=== PATIENT | male | born 1965 | race Caucasian/White ===

== ENCOUNTER 2020-10-11 05:49 | Emergency (ER) | payer OTHER ==
[~2020-10-11] VITALS: Ht 172.7 cm; Wt 84.4 kg
[~2020-10-11 05:49] MED LIST: ALLO100T; INSU100V11
--- NOTE | 2020-10-11 06:09 | NUR ---
PATIENT BIBSELF C/O NAUSEA -VOMITING S/P DRINKING WATER THAT WAS IN HIS CAR. PATIENT IS A/O X 4, RR EVEN AND UNLABORED, NO SIGNS OF SOB NOTED, PATIENT CONNECTED TO SINGEING TORCH OPERATOR AND POX. WILL CONTINUE TO MONITOR.
[2020-10-11] MEDS ORDERED: ONDANSETRON HCL/PF 4 MG/2 ML VIAL ONE (06:38)
[2020-10-11] MEDS ORDERED: MAG HYDROX/AL HYDROX/SIMETH 30 ML UDC ONE (06:38)
[2020-10-11] MEDS ORDERED: LIDOCAINE VISCOUS 2% UD 15 ML UDC ONE (06:38)
[2020-10-11] MEDS ORDERED: FAMOTIDINE/PF INJ 20 MG/2 ML VIAL IV ONE (06:39)
[2020-10-11] MEDS: IV NS 0.9% 1,000 ML BAG IV ONE (06:46)
[2020-10-11] MEDS: LIDOCAINE VISCOUS 2% UD 15 ML UDC MM ONE (06:46)
[2020-10-11] MEDS: MAG HYDROX/AL HYDROX/SIMETH 30 ML UDC PO ONE (06:46)
[2020-10-11] MEDS: ONDANSETRON HCL/PF 4 MG/2 ML VIAL IVP ONE (06:46)
[2020-10-11] MEDS: FAMOTIDINE/PF INJ 20 MG/2 ML VIAL IV ONE (06:46)
--- NOTE | 2020-10-11 06:51 | NUR ---
URINE COLLECETED AND SENT TO LAB
[2020-10-11] MEDS ORDERED: FAMO-131 PO (06:52)
[2020-10-11] MEDS ORDERED: ONDA4TAB5 PO (06:52)
[2020-10-11 06:55] LABS: BASOPHILS # (AUTO) 0.1 K/uL (0.0-0.2); BASOPHILS % (AUTO) 0.8 % (0.0-2.0); EOSINOPHILS % (AUTO) 0.6 % (0.0-6.0); HEMATOCRIT 46 % (39-51); HEMOGLOBIN 16.4 g/dL (13.5-17.5); LYMPHOCYTES # (AUTO) 1.8 K/uL (0.8-4.8); LYMPHOCYTES % (AUTO) 21.9 % (20.0-44.0); MEAN CORPUSCULAR HGB CONC 36 g/dl (31.0-36.0); MEAN CORPUSCULAR VOLUME 90 fL (80-96); MONOCYTES # (AUTO) 0.7 K/uL (0.1-1.30); MONOCYTES % (AUTO) 8.1 % (2.0-12.0); NEUTROPHILS # (AUTO) 5.7 K/uL (1.8-8.9); NEUTROPHILS % (AUTO) 68.6 % (43.0-81.0); PLATELET COUNT (AUTO) 167 K/uL (150-450); RED BLOOD CELL COUNT(AUTO) 5.08 MIL/uL (4.5-6.0); WHITE BLOOD COUNT (AUTO) 8.3 K/uL (4.3-11.0)
--- NOTE | 2020-10-11 06:55 | NUR ---
RAD AT BEDSIDE
[2020-10-11 07:20] LABS: CARBON DIOXIDE 29 mmol/L (21-32); CHLORIDE 97 mmol/L (98-107); CREATININE 0.9 mg/dL (0.6-1.3); POTASSIUM 3.6 mmol/L (3.5-5.1); SODIUM SERUM 135 mmol/L (136-145); UREA NITROGEN, BLOOD 12 mg/dL (7-18)
[2020-10-11 07:23] LABS: GLUCOSE 354 mg/dL (74-106)
[2020-10-11 07:26] LABS: ALANINE AMINOTRANSFERASE 30 U/L (12-78); ALBUMIN 3.7 g/dL (3.4-5.0); ALKALINE PHOSPHATASE 136 U/L (46-116); ASPARTATE AMINOTRANSFERASE 12 U/L (15-37); BILIRUBIN,DIRECT 0.2 mg/dL (0.0-0.2); BILIRUBIN,TOTAL 0.9 mg/dL (0.2-1.0); LIPASE 74 U/L (73-393); TOTAL PROTEIN, SERUM 7.4 g/dL (6.4-8.2)
[2020-10-11 07:59] LABS: BILIRUBIN,URINE Negative (NEGATIVE); COLOR,URINE YELLOW (YELLOW); LEUKOCYTE ESTERASE ,URINE Negative (NEGATIVE); NITRITE, URINE Negative (NEGATIVE); PROTEIN,URINE Negative (NEGATIVE); UGLUCOSE 500 MG/DL mg/dL (NEGATIVE); UROBILINOGEN,URINE 0.2 EU/dL (0.2)
[2020-10-11] MEDS ORDERED: BENZOIN COMPOUND TINCT 60 ML BOTTLE ONE (08:01)
--- NOTE | 2020-10-11 08:02 | NUR ---
F/U URINE AND DRUG TEST, SPOKE WITH FABBY
[2020-10-11 08:12] LABS: BACTERIA,URINE Rare /HPF (None Seen); RBC,URINE NONE SEEN /HPF (0-2); SQUAMOUS EPITHELIAL CELL,UR Few /HPF (None Seen); WBC,URINE 0-2 /HPF (0-3)
--- NOTE | 2020-10-11 08:37 | NUR ---
LAB RESULTS ARE BACK AND SHOWS POSITIVE OF AMPETHAMINE AND MD KAYLEE NOTIFIED.
--- NOTE | 2020-10-11 08:38 | NUR ---
DR MAYER AT BEDSIDE
--- NOTE | 2020-10-11 08:40 | NUR ---
PT CALLED SISTER TO PICK HIM UP AND DR MAYER AGREED TO MEDICATE HIM
[2020-10-11] MEDS ORDERED: LORAZEPAM 1 MG TABLET ONE (09:04)
[2020-10-11] MEDS: LORAZEPAM 1 MG TABLET PO ONE (09:07)
--- NOTE | 2020-10-11 09:08 | NUR ---
BP AND HEART RATE ELEVATED, DR MAYER MADE AWARE, WITH NEW ORDERS.
[2020-10-11 09:25] VITALS: BP 170/100
--- NOTE | 2020-10-11 09:38 | NUR ---
IV removed. Catheter intact and site benign. Pressure and 4x4 applied to site. No bleeding noted.Patient discharged to waiting room to wait for sister to drive him home. Written and verbal after care instructions given. Patient verbalizes understanding of instruction.
== END 2020-10-11 09:39 | disposition home or self-care (01) ==
LOC: ER 05:49
DX: R10.13 Epigastric pain (principal); R11.0 Nausea; R53.81 Other malaise; F15.129 Other stimulant abuse with intoxication, unspecified; F14.129 Cocaine abuse with intoxication, unspecified; R07.89 Other chest pain; E11.65 Type 2 diabetes mellitus with hyperglycemia; I10 Essential (primary) hypertension; M10.9 Gout, unspecified; Z79.899 Other long term (current) drug therapy; Z79.4 Long term (current) use of insulin
CPT/HCPCS: 36415; 71045; 80048; 80076; 80307; 80320; 81001; 82962; 83690; 84484; 85025; 93005; 96361; 96374; 96375; 99285; J2405; J3490; G0480

== ENCOUNTER 2022-03-30 06:14 | Inpatient (IN) | payer OTHER ==
[~2022-03-30] VITALS: Ht 182.9 cm; Wt 97.5 kg
[2022-03-30] VITALS (10 sets, daily range): BP systolic 94–114; BP diastolic 63–74
[~2022-03-30 06:14] MED LIST changes: +FAMO-131 PO; +ONDA4TAB5 PO
[2022-03-30] MEDS ORDERED: IV NS 0.9% 1,000 ML BAG IV ONE (06:30)
--- NOTE | 2022-03-30 06:37 | NUR ---
PATIENT TO CT
--- NOTE | 2022-03-30 07:01 | NUR ---
IV LINE ESTABLISHED, LAC18G
[2022-03-30 07:13] LABS: BASOPHILS % (AUTO) 0.6 % (0.0-2.0); HEMATOCRIT 47 % (39-51); LYMPHOCYTES # (AUTO) 0.4 K/uL (0.8-4.8); LYMPHOCYTES % (AUTO) 5.9 % (20.0-44.0); MEAN CORPUSCULAR HGB CONC 32 g/dl (31.0-36.0); MEAN CORPUSCULAR VOLUME 94 fL (80-96); MONOCYTES # (AUTO) 0.3 K/uL (0.1-1.30); MONOCYTES % (AUTO) 4.4 % (2.0-12.0); NEUTROPHILS # (AUTO) 6.3 K/uL (1.8-8.9); NEUTROPHILS % (AUTO) 89.1 % (43.0-81.0); PLATELET COUNT (AUTO) 167 K/uL (150-450); RED BLOOD CELL COUNT(AUTO) 4.97 MIL/uL (4.5-6.0)
[2022-03-30 07:26] LABS: ALANINE AMINOTRANSFERASE 33 U/L (12-78); ALBUMIN 3.5 g/dL (3.4-5.0); ALCOHOL, BLOOD < 3 mg/dL (0-0); ALKALINE PHOSPHATASE 205 U/L (46-116); ASPARTATE AMINOTRANSFERASE 34 U/L (15-37); BILIRUBIN,DIRECT 0.1 mg/dL (0.0-0.2); BILIRUBIN,TOTAL 0.3 mg/dL (0.2-1.0); CALCIUM, SERUM 8.8 mg/dL (8.5-10.1); CARBON DIOXIDE 24 mmol/L (21-32); CHLORIDE 88 mmol/L (98-107); CREATININE 1.9 mg/dL (0.6-1.3); POTASSIUM 5.1 mmol/L (3.5-5.1); SODIUM SERUM 129 mmol/L (136-145); TOTAL PROTEIN, SERUM 7.2 g/dL (6.4-8.2); UREA NITROGEN, BLOOD 27 mg/dL (7-18)
[2022-03-30 07:29] LABS: ACETAMINOPHEN 0 ug/ml (10-30); GLUCOSE 1109 mg/dL (74-106)
--- NOTE | 2022-03-30 07:38 | NUR ---
[employer] bond underwriter paged - via exchange
[2022-03-30] MEDS ORDERED: INSULIN REGULAR, HUMAN 100 UNITS in IV NS 0.9% 100 ML IV PRN ×2 (08:00)
[2022-03-30] MEDS ORDERED: IV NS 0.9% 1,000 ML IV PRN (08:00)
--- NOTE | 2022-03-30 08:27 | NUR ---
COVID SWAB COLLECTED AND SENT TO LAB
--- NOTE | 2022-03-30 08:28 | NUR ---
URINE COLLECTED AND SENT TO LAB.
--- NOTE | 2022-03-30 08:31 | NUR ---
started insulin drip 6.06ml/hr at left ac as ordered
--- NOTE | 2022-03-30 08:51 | NUR ---
MRSA SWAB DONE
[2022-03-30 09:23] LABS: CREATININE 1.9 mg/dL (0.6-1.3); PHOSPHORUS 7.4 mg/dL (2.5-4.9); POTASSIUM 4.6 mmol/L (3.5-5.1)
[2022-03-30 09:38] LABS: BILIRUBIN,URINE NEGATIVE (NEGATIVE); COLOR,URINE YELLOW (YELLOW); LEUKOCYTE ESTERASE ,URINE NEGATIVE (NEGATIVE); NITRITE, URINE NEGATIVE (NEGATIVE); PH,URINE 5.5 (5.0-8.0); PROTEIN,URINE NEGATIVE (NEGATIVE); UGLUCOSE 3+ mg/dL (NEGATIVE); UROBILINOGEN,URINE 0.2 EU/dL (0.2)
[2022-03-30] MEDS ORDERED: INSU100I14 SQ (09:38)
[2022-03-30] MEDS ORDERED: ASPI-1169 PO (09:38)
[2022-03-30] MEDS ORDERED: HALO10TA13 PO (09:38)
[2022-03-30] MEDS ORDERED: METO25TA20 PO (09:38)
[2022-03-30] MEDS ORDERED: INSU100I26 SQ (09:38)
[2022-03-30] MEDS ORDERED: SERT100T12 PO (09:38)
[2022-03-30] MEDS ORDERED: DIPH-1062 PO (09:38)
[2022-03-30 09:42] LABS: CALCIUM, SERUM 8.9 mg/dL (8.5-10.1); CREATININE 1.8 mg/dL (0.6-1.3); MAGNESIUM 2.9 mg/dL (1.8-2.4); PHOSPHORUS 6.9 mg/dL (2.5-4.9); POTASSIUM 4.7 mmol/L (3.5-5.1)
[2022-03-30 09:42] LABS: BACTERIA,URINE None seen /HPF (None Seen); SQUAMOUS EPITHELIAL CELL,UR Few /HPF (None Seen); WBC,URINE 0-2 /HPF (0-3)
[2022-03-30] MEDS ORDERED: POTASSIUM CL. PREMIX PERIPHER. 50 ML ONE (09:58)
[2022-03-30] MEDS: POTASSIUM CL. PREMIX PERIPHER. 50 ML IV SCH ×4 (10:10→13:05)
[2022-03-30] MEDS ORDERED: POTASSIUM CL. PREMIX PERIPHER. 150 ML ONE (11:09)
--- NOTE | 2022-03-30 11:20 | NUR ---
PATIENT CLEANED, CHANGED LINEN AND PULL UP.
[2022-03-30 11:40] LABS: CALCIUM, SERUM 9.1 mg/dL (8.5-10.1); CREATININE 1.9 mg/dL (0.6-1.3); MAGNESIUM 2.9 mg/dL (1.8-2.4); PHOSPHORUS 4.1 mg/dL (2.5-4.9); POTASSIUM 4.4 mmol/L (3.5-5.1)
[2022-03-30] MEDS ORDERED: ONDANSETRON HCL/PF 4 MG/2 ML VIAL IVP PRN (12:00)
[2022-03-30] MEDS ORDERED: INSULIN REGULAR, HUMAN 100 UNIT in IV NS 0.9% 99 ML IV PRN ×2 (12:00)
--- NOTE | 2022-03-30 13:22 | NUR ---
report given to Lindy CARRASQUILLO for NORBERT
[2022-03-30] MEDS: IV NS 0.9% 1,000 ML IV PRN ×4 (13:25→22:52)
--- NOTE | 2022-03-30 14:00 | NUR ---
ICU/RN PT RECEIVED IN ROOM 255, PLACED ON BED. PT ON 2L O2 NC SAT 96%, VITAL SIGNS STABLE. PT AWAKE AND ALERT, COOPERATIVE WITH POC.
[2022-03-30] MEDS: ENOXAPARIN SODIUM 40 MG/0.4 ML DISP.SYRIN SQ SCH (14:21)
[2022-03-30] MEDS: BLOOD SUGAR DIAGNOSTIC 1 EACH STRIP IN SCH ×10 (14:26→22:53)
[2022-03-30 16:22] LABS: CALCIUM, SERUM 8.6 mg/dL (8.5-10.1); CREATININE 1.6 mg/dL (0.6-1.3); POTASSIUM 4.1 mmol/L (3.5-5.1)
--- NOTE | 2022-03-30 19:40 | NUR ---
RN OPENING NOTES RECEIVED PT AWAKE ON BED, A/O X3 ABLE TO MAKE NEEDS KNOWN, ON NC AT 2LPM, TOLERATING WELL SATING >95%, IV ACCESS ON LAC #18G WITH INSILIN DRIP AT 5.0 UNITS/HR AND R WRIST #20G RUNNING NS @ 200 ML/HR, AFEBRILE. NO PAIN REPORTED AT THIS TIME. F/C IN PLACE DRAINING YELLOW URINE. REPOSITION FOR COMFORT. SAFETY MEASURES IN PLACED; CALL LIGHT WITHIN REACH, WILL CONTINUE TO MONITOR PT THROUGHOUT THE SHIFT.
[2022-03-30 21:55] LABS: CALCIUM, SERUM 8.5 mg/dL (8.5-10.1); CREATININE 1.1 mg/dL (0.6-1.3); POTASSIUM 4.1 mmol/L (3.5-5.1)
--- NOTE | 2022-03-30 23:00 | NUR ---
RN NOTE COVID TEST DONE, SAMPLE SENT TO LABORATORY.
[2022-03-31] VITALS (14 sets, daily range): BP systolic 98–141; BP diastolic 40–83
--- NOTE | 2022-03-31 00:45 | NUR ---
RN NOTE LAB CAME TO DRAW BLOOD FOR SCHEDULED BMP. UNABLE TO GET BLOOD, PT IS HARDSTICK PER LAB WILL SEND ANOTHER OBSTETRICIAN AND GYNAECOLOGIST TO TAKE IT.
[2022-03-31] MEDS: BLOOD SUGAR DIAGNOSTIC 1 EACH STRIP IN SCH ×8 (00:47→21:31)
[2022-03-31 02:07] LABS: CALCIUM, SERUM 8.8 mg/dL (8.5-10.1); CREATININE 1.1 mg/dL (0.6-1.3); POTASSIUM 4.1 mmol/L (3.5-5.1)
[2022-03-31] MEDS ORDERED: DEXTROSE 50%-WATER 50 ML DISP.SYRIN IV PRN (03:30)
[2022-03-31] MEDS ORDERED: INSULIN GLARGINE, 100 UNIT/ML CARTRIDGE SQ ONE (03:46)
[2022-03-31] MEDS: INSULIN GLARGINE, 100 UNIT/ML CARTRIDGE SQ SCH ×2 (03:53→21:36)
[2022-03-31 05:13] LABS: BASOPHILS % (AUTO) 0.1 % (0.0-2.0); MEAN CORPUSCULAR VOLUME 90 fL (80-96); MONOCYTES # (AUTO) 0.8 K/uL (0.1-1.30); NEUTROPHILS # (AUTO) 10.9 K/uL (1.8-8.9)
[2022-03-31 05:17] LABS: MAGNESIUM 2.8 mg/dL (1.8-2.4); PHOSPHORUS 3.6 mg/dL (2.5-4.9); POTASSIUM 4.8 mmol/L (3.5-5.1)
[2022-03-31] MEDS: IV NS 0.9% 1,000 ML IV PRN ×3 (05:17→19:35)
[2022-03-31 05:20] LABS: HEMATOCRIT 42 % (39-51); HEMOGLOBIN 14.2 g/dL (13.5-17.5); LYMPHOCYTES # (AUTO) 1.2 K/uL (0.8-4.8); LYMPHOCYTES % (AUTO) 9.3 % (20.0-44.0); MEAN CORPUSCULAR HGB CONC 34 g/dl (31.0-36.0); MONOCYTES % (AUTO) 5.9 % (2.0-12.0); NEUTROPHILS % (AUTO) 84.7 % (43.0-81.0); PLATELET COUNT (AUTO) 147 K/uL (150-450); RED BLOOD CELL COUNT(AUTO) 4.65 MIL/uL (4.5-6.0); WHITE BLOOD COUNT (AUTO) 12.9 K/uL (4.3-11.0)
--- NOTE | 2022-03-31 07:12 | NUR ---
RN OPENING NOTES PT SLEEPING ON BED BUT EASILY AROUSABLE TO TOUCH AND VOICE, A/O X3 ABLE TO MAKE NEEDS KNOWN, ON NC AT 2LPM, TOLERATING WELL SATING >95%, IV ACCESS ON LAC #18G RUNNING NS AT 125 ML/HR, AND R WRIST #20G SL, AFEBRILE. NO PAIN REPORTED AT THIS TIME. ON CONSISTENT CARB DIET, F/C IN PLACE DRAINING YELLOW URINE. REPOSITION FOR COMFORT. SAFETY MEASURES IN PLACED; CALL LIGHT WITHIN REACH, WILL ENDORSE TO AM SHIFT NURSE FOR CONTINUITY OF CARE. Addendum: 03/31/22 at 0714 by JOSEE KOCH RN ICU/RN CLOSING NOTES PT SLEEPING ON BED BUT EASILY AROUSABLE TO TOUCH AND VOICE, A/O X3 ABLE TO MAKE NEEDS KNOWN, ON NC AT 2LPM, TOLERATING WELL SATING >95%, IV ACCESS ON LAC #18G RUNNING NS AT 125 ML/HR, AND R WRIST #20G SL, AFEBRILE. NO PAIN REPORTED AT THIS TIME. ON CONSISTENT CARB DIET, F/C IN PLACE DRAINING YELLOW URINE. REPOSITION FOR COMFORT. SAFETY MEASURES IN PLACED; CALL LIGHT WITHIN REACH, WILL ENDORSE TO AM SHIFT NURSE FOR CONTINUITY OF CARE.
--- NOTE | 2022-03-31 07:35 | NUR ---
RN OPENING NOTES RECEIVED PATIENT REPORT FROM [facility] NEIDA ZAPATA. PATIENT REMAINS IN ROOM BREATHING EVELY AND UNLABORED ON 2 LITERS NASAL CANULA, OXYGEN SATURATIOMN Addendum: 03/31/22 at 0745 by AURELIANO JACKSON RN NOTE SAVED PREMATURELY. THE REST OF THR OPENING NOTE IS FOLLOWS: OXYGEN SATURATION AT 99 PERCENT ON 2 LITERS NASAL CANULA. PATIENT ALERT TIMES 3, SLURRING WORDS BUT ABLE TO MAKE NEEDS KNOWN. WOUND CARE NURSE RANDELL AT BEDSIDE. MULTIPLE WOUNDS NOTED, REDNESS, OLD SCARS BUT NOTHING OPEN. READING NSR ON THE MONITOR. IV ACCESS ON LEFT AC 18 GAUGE AND RIGHT WRIST 20 GAUGE, RUNNING FLUIDS ORDERED. SAFETY MEASURES IMPLEMENTED, WILL CONTINUE PLAN OF CARE AND ANTICIPATE NEEDS.
--- NOTE | 2022-03-31 07:42 | NUR ---
WOUND CARE CONSULT: PT PRESENTS WITH LEFT HAND/WRIST REDNESS WITH SOME EXCORIATION TO LEFT HAND, ABRASIONS TO NOSE AND SOME DISCOLORATION TO LOWER LEGS, ALL PRESENT ON ADMISSION. RECOMMENDATIONS MADE FOR SKIN PROTECTION AND WOUND CARE FOR NOSE ABRASIONS. DISCUSSED WITH NURSING STAFF. LEFT ARM ELEVATED ON PILLOW. MD IN AGREEMENT WITH PLAN OF CARE.
[2022-03-31] MEDS ORDERED: Z GUARD REMEDY 4 OZ OINT TP PRN (08:00)
[2022-03-31] MEDS: PANTOPRAZOLE 40 MG VIAL IV SCH (08:01)
[2022-03-31] MEDS: INSULIN REGULAR, HUMAN 100 UNIT/ML 3 ML VIAL SQ PRN ×4 (08:03→21:38)
[2022-03-31] MEDS: NEOMY SULF/BACITRAC ZN/POLY 15 GM TUBE TP SCH (08:58)
[2022-03-31 09:24] LABS: BAND % (MANUAL) 23 % (0.0-5.0); LYMPHOCYTES % (MANUAL) 30 % (16-48); MONOCYTES % (MANUAL) 8 % (0-11.0); NEUTROPHILS % (MANUAL) 39 (42-76)
[2022-03-31] MEDS ORDERED: CEFEPIME 1 GM in IV D5W 50 ML IV SCH (10:30)
--- NOTE | 2022-03-31 10:37 | NUR ---
HAND OFF REPORT GIVEN TO GUILLERMO CARRASQUILLO IN [place]. PATIENT WILL BE TRANSFERRED TO ROOM 115-1 FOR CONTINUATION OF CARE.
[2022-03-31] MEDS ORDERED: CEFEPIME 2 GM in IV D5W 100 ML IV SCH (10:50)
--- NOTE | 2022-03-31 11:25 | NUR ---
MOBILE WEB APPLICATION DEVELOPER NOTES RECIEVED PT FROM ICU. ALERAT AND ORIENTED X4. NO COMPLAINTS OF PAIN OR DISCOMFORT AT THIS TIME. RESPIRATIONS ARE EQUAL AND UNLABORED WITH NO SOB. PT IS ON NC 2L AND TOLERATING IT WELL WITH 02 SATURATION AT 99%. IV ACCESS ON LAC AND RIGHT ARM 20G PATENT AND INTACT. PT IS PO AND RECEIVES MEDS ORALLY. HOB ELEVATED TO PTS COMFORT. SIDERAILS UP AT ALL TIMES. CALL LIGHT WITHIN REACH,. WILL CONTINUE CURRENT PLAN OF CARE.
[2022-03-31] MEDS: ENOXAPARIN SODIUM 40 MG/0.4 ML DISP.SYRIN SQ SCH (11:53)
[2022-03-31] MEDS: CEFEPIME 2 GM in IV D5W 100 ML IV SCH ×2 (11:55→20:00)
--- NOTE | 2022-03-31 12:30 | NUR ---
ms rn note blood [id number] dr peace,notified, no new order given at this time ,will f\u
--- NOTE | 2022-03-31 14:45 | NUR ---
MS RN NOTE ROUNDS MADE,ALL NEEDS ATTENDED ,NOT IN DISTRESS
--- NOTE | 2022-03-31 18:32 | NUR ---
HEAD OF VISUAL MERCHANDISING CLOSING NOTES PT IS ASLEEP IN BED. NO COMPLAINTS OF PAIN OR DISCOMFORT AT THIS TIME. PT IS ON NC 2L WITH 0W SATURATION AT 98%. IV ACCESS ON LAC PATENT AND INTACT. ALL DUE MEDS AND TC GIVEN ORDERED. PT TOLERATED EVERYTHING WELL. HOB ELEVATED TO PTS COMFORT. SIDERAILS UP AT ALL TIMES. CALL LIGHT WITHIN REACH. ALL NEEDS ANTICIPATED. WILL ENDORSE TO ONCOMING NURSE.
[2022-04-01] MEDS: IV NS 0.9% 1,000 ML IV PRN (03:23)
[2022-04-01] MEDS: CEFEPIME 2 GM in IV D5W 100 ML IV SCH ×3 (03:49→20:25)
--- NOTE | 2022-04-01 04:42 | NUR ---
closing notes: alert and orientated X3 assisted OOB to sit on the bedside commode minimal assist needed excessive water drinker petit in place and draiange clear yellow HC blood sugar 269 coverage ordered
[2022-04-01 05:00] VITALS: BP 131/71
[2022-04-01 05:53] LABS: BASOPHILS % (AUTO) 0.2 % (0.0-2.0); EOSINOPHILS % (AUTO) 0.1 % (0.0-6.0); HEMATOCRIT 37 % (39-51); HEMOGLOBIN 12.3 g/dL (13.5-17.5); LYMPHOCYTES # (AUTO) 1.6 K/uL (0.8-4.8); LYMPHOCYTES % (AUTO) 10.1 % (20.0-44.0); MEAN CORPUSCULAR HGB CONC 34 g/dl (31.0-36.0); MEAN CORPUSCULAR VOLUME 89 fL (80-96); MONOCYTES # (AUTO) 0.6 K/uL (0.1-1.30); NEUTROPHILS # (AUTO) 13.3 K/uL (1.8-8.9); NEUTROPHILS % (AUTO) 85.6 % (43.0-81.0); PLATELET COUNT (AUTO) 134 K/uL (150-450); RED BLOOD CELL COUNT(AUTO) 4.14 MIL/uL (4.5-6.0); WHITE BLOOD COUNT (AUTO) 15.5 K/uL (4.3-11.0)
[2022-04-01 06:10] LABS: CALCIUM, SERUM 8.5 mg/dL (8.5-10.1); CREATININE 0.8 mg/dL (0.6-1.3); POTASSIUM 3.8 mmol/L (3.5-5.1)
--- NOTE | 2022-04-01 07:30 | NUR ---
RN Receiving Report. Patient AOx4 able to express his concerns. Patient asking for a juice. Patient able to move arms on his own, helped reposition. Patient with no signs of distress or discomfort, no sign of respiratory distress, no sign of IV infiltration. All safety precautions taken, call light and table within reach, bed at lowest position. Will continue to monitor throughout shift.
[2022-04-01] MEDS: BLOOD SUGAR DIAGNOSTIC 1 EACH STRIP IN SCH ×4 (08:11→21:51)
[2022-04-01] MEDS: PANTOPRAZOLE 40 MG VIAL IV SCH (08:12)
[2022-04-01] MEDS: NEOMY SULF/BACITRAC ZN/POLY 15 GM TUBE TP SCH (09:38)
[2022-04-01] MEDS: PANTOPRAZOLE 40 MG TABLET.DR PO SCH (09:38)
[2022-04-01] MEDS: ENOXAPARIN SODIUM 40 MG/0.4 ML DISP.SYRIN SQ SCH (12:57)
[2022-04-01 13:00] VITALS: BP 150/92
[2022-04-01] MEDS: INSULIN REGULAR, HUMAN 100 UNIT/ML 3 ML VIAL SQ PRN ×3 (13:04→21:40)
--- NOTE | 2022-04-01 18:08 | NUR ---
RN Closing Report Patient AOx2-3 able to express his concerns. Patient remained safe throughout shift, educated patient on importance of monitoring sugar levels, verbalized understanding but not sure if he fully comprehends. Pt verbalized no pain or discomfort, no signs of distress. All safety precautions taken, call light and table within reach, bed at lowest position. Medications administered as prescribed, care provided as needed. Will endorse to night nurse for continuity of care.
--- NOTE | 2022-04-01 19:57 | NUR ---
RN OPENNING NOTES; RECEIVED PT IN BED SLEEPING BUT EASY TO AROUSED,ON 2L O2 VIA NC HAMIDA WELL,SATTING 97.6%, NO SIGN SOB/DISTRESS NOTED,IV ACCESS ON LAC 20G WITH NS 75ML/HR,PATENT AND INTACT,SAFETY MEASURE IN PLACE,CALL LIGHT WITHIN REACH,WILL CONTINUE TO MONITOR.
[2022-04-01 20:00] VITALS: BP 140/83
[2022-04-01] MEDS: INSULIN GLARGINE, 100 UNIT/ML CARTRIDGE SQ SCH (21:43)
[2022-04-02] MEDS: IV NS 0.9% 1,000 ML IV PRN ×2 (01:24→16:20)
[2022-04-02] MEDS: CEFEPIME 2 GM in IV D5W 100 ML IV SCH ×3 (03:13→20:18)
[2022-04-02 04:00] VITALS: BP 140/83
[2022-04-02 05:51] LABS: BASOPHILS % (AUTO) 0.2 % (0.0-2.0); EOSINOPHILS % (AUTO) 0.2 % (0.0-6.0); HEMATOCRIT 36 % (39-51); HEMOGLOBIN 12.1 g/dL (13.5-17.5); LYMPHOCYTES # (AUTO) 1.5 K/uL (0.8-4.8); MEAN CORPUSCULAR HGB CONC 34 g/dl (31.0-36.0); MEAN CORPUSCULAR VOLUME 89 fL (80-96); MONOCYTES # (AUTO) 0.8 K/uL (0.1-1.30); MONOCYTES % (AUTO) 5.7 % (2.0-12.0); NEUTROPHILS # (AUTO) 11.4 K/uL (1.8-8.9); NEUTROPHILS % (AUTO) 82.9 % (43.0-81.0); PLATELET COUNT (AUTO) 134 K/uL (150-450); RED BLOOD CELL COUNT(AUTO) 4.01 MIL/uL (4.5-6.0); WHITE BLOOD COUNT (AUTO) 13.8 K/uL (4.3-11.0)
[2022-04-02 06:06] LABS: CALCIUM, SERUM 7.8 mg/dL (8.5-10.1); CREATININE 0.7 mg/dL (0.6-1.3); POTASSIUM 3.3 mmol/L (3.5-5.1)
--- NOTE | 2022-04-02 06:25 | NUR ---
RN CLOSING NOTES; PATIENT IN BED SLEEPING BUT EASY TO AROUSED,ON 2L O2 VIA NC HAMIDA WELL,SATTING 98%, NO SIGN SOB/DISTRESS NOTED,NO COMPLAIN OF PAIN/DISCOMFORT AT THIS TIME,DUE MEDS GIVEN ORDER,ALL NEEDS ATTENDED,IV ACCESS ON LAC 20G WITH NS 75ML/HR,PATENT AND INTACT,SAFETY MEASURE IN PLACE,CALL LIGHT WITHIN REACH,WILL ENDORSED TO NEXT SHIFT.
[2022-04-02] MEDS: BLOOD SUGAR DIAGNOSTIC 1 EACH STRIP IN SCH ×4 (06:35→21:25)
[2022-04-02] MEDS: INSULIN REGULAR, HUMAN 100 UNIT/ML 3 ML VIAL SQ PRN ×4 (06:35→21:22)
--- NOTE | 2022-04-02 07:40 | NUR ---
RN OPENNING NOTES; RECEIVED PT IN BED AWAKE AND A/O X 4 , VERBALLY REPONSIVE ,ON 2L O2 VIA NC HAMIDA WELL,SATTING 97.6%, NO SIGN SOB/DISTRESS NOTED, NO C/O OF PAIN AND DISCOMFORT NOTED , IV ACCESS ON LAC 20G WITH NS 75ML/HR,PATENT AND INTACT,SAFETY MEASURE IN PLACE,SIDE RAILS UP X 2 , CALL LIGHT WITHIN REACH,WILL CONTINUE TO MONITOR.
[2022-04-02] MEDS: PANTOPRAZOLE 40 MG TABLET.DR PO SCH (09:10)
[2022-04-02] MEDS ORDERED: POTASSIUM CHLORIDE 20 MEQ TAB.PRT.SR PO SCH (10:00)
[2022-04-02] MEDS: NEOMY SULF/BACITRAC ZN/POLY 15 GM TUBE TP SCH (10:43)
[2022-04-02 12:00] VITALS: BP 140/83
[2022-04-02] MEDS: ENOXAPARIN SODIUM 40 MG/0.4 ML DISP.SYRIN SQ SCH (12:08)
[2022-04-02] MEDS ORDERED: POLYETHYLENE GLYCOL 3350 17 GM POWD.PACK PO ONE (18:00)
--- NOTE | 2022-04-02 18:52 | NUR ---
RN CLOSING NOTES; PT IN BED AWAKE AND A/O X 4 , VERBALLY REPONSIVE ,ON 2L O2 VIA NC HAMIDA WELL,SATTING 97.6%, NO SIGN SOB/DISTRESS NOTED, NO C/O OF PAIN AND DISCOMFORT NOTED , IV ACCESS ON LAC 20G WITH NS 75ML/HR,PATENT AND INTACT,ALL DUE MEDS ORDERED GIVEN , C/O OF NO BM AND MD AWARE WITH ORDER OF MIRALAX AND COLACE AND MIRALAX GIVNE X 1 AND ROUTINELY QD, SEEN BY PT/OT , EVAL AND TREATMENT DONE . SAFETY MEASURE IN PLACE,SIDE RAILS UP X 2 , CALL LIGHT WITHIN REACH, ENDORSED TO NEXT SHIFT .
--- NOTE | 2022-04-02 19:48 | NUR ---
RN OPENING NOTE PATIENT ASLEEP IN BED. A/OX4. NO S/S OF DISTRESS, BREATHING WITHOUT DIFFICULTY ON 2L NC. LAC #18 SL INTACT AND PATENT; R-WRIST #18 INTACT AND PATENT W/ NS 75 ML/HR. SAFETY MEASURES IN P[LACE: BED LOCKED AND AT LOWEST POSITION, RAILS UP X2, CALL ALLEN WITHIN REACH. WILL CONTINUE TO MONITOR PATIENT.
[2022-04-02 20:52] VITALS: BP 146/96
[2022-04-02] MEDS: INSULIN GLARGINE, 100 UNIT/ML CARTRIDGE SQ SCH (21:23)
[2022-04-03] MEDS: IV NS 0.9% 1,000 ML IV PRN ×2 (00:37→15:56)
[2022-04-03] MEDS: CEFEPIME 2 GM in IV D5W 100 ML IV SCH ×3 (03:17→20:34)
[2022-04-03 04:00] VITALS: BP 137/66
--- NOTE | 2022-04-03 06:29 | NUR ---
RN CLOSING NOTE PATIENT AWAKE IN BED. A/OX4. NO S/S OF DISTRESS, BREATHING WITHOUT DIFFICULTY ON 2L NC. LAC #18 SL INTACT AND PATENT; R-WRIST #18 INTACT AND PATENT W/ NS 75ML/HR. SAFETY MEASURES IN PLACE: BED LOCKED IN POSITION AND AT LOWEST POSITION, RAILS UP X2, CALL ALLEN WITHIN REACH. WILL ENDORSE TO NEXT SHIFT FOR NORBERT.
[2022-04-03 06:48] LABS: CALCIUM, SERUM 7.9 mg/dL (8.5-10.1); CREATININE 0.7 mg/dL (0.6-1.3); POTASSIUM 3.5 mmol/L (3.5-5.1)
--- NOTE | 2022-04-03 07:00 | NUR ---
MS RN OPENING NOTE PATIENT LAYING IN BED, A/O OX 4, ABLE TO MAKE NEEDS KNOWN, TOLERATING WELL ON 2 LPM O2 VIA CANNULA WITH NO S/S RESPIRATORY DISTRESS. LAC # 18 SL CLEAN, INTACT, AND INFUSING NS @ 75 ML/HR. R WRIST # 18 SL CLEAN, INTACT, AND FLUSHING WELL. SAFETY MEASURES IN PLACE: BED IN LOWEST LOCKED POSITION, SIDE RAILS UP X 2, CALL LIGHT WITHIN REACH. WILL CONTINUE TO MONITOR.
[2022-04-03 07:30] LABS: BASOPHILS % (AUTO) 0.4 % (0.0-2.0); EOSINOPHILS % (AUTO) 0.9 % (0.0-6.0); HEMATOCRIT 36 % (39-51); HEMOGLOBIN 12.3 g/dL (13.5-17.5); LYMPHOCYTES # (AUTO) 1.3 K/uL (0.8-4.8); LYMPHOCYTES % (AUTO) 16.4 % (20.0-44.0); MEAN CORPUSCULAR HGB CONC 35 g/dl (31.0-36.0); MEAN CORPUSCULAR VOLUME 89 fL (80-96); MONOCYTES # (AUTO) 1.1 K/uL (0.1-1.30); MONOCYTES % (AUTO) 13.6 % (2.0-12.0); NEUTROPHILS # (AUTO) 5.5 K/uL (1.8-8.9); NEUTROPHILS % (AUTO) 68.7 % (43.0-81.0); PLATELET COUNT (AUTO) 149 K/uL (150-450); RED BLOOD CELL COUNT(AUTO) 4.03 MIL/uL (4.5-6.0); WHITE BLOOD COUNT (AUTO) 8.1 K/uL (4.3-11.0)
[2022-04-03] MEDS: BLOOD SUGAR DIAGNOSTIC 1 EACH STRIP IN SCH ×5 (07:42→21:51)
[2022-04-03] MEDS: DOCUSATE SODIUM 100 MG CAPSULE PO SCH ×2 (09:04→16:41)
[2022-04-03] MEDS: PANTOPRAZOLE 40 MG TABLET.DR PO SCH (09:04)
[2022-04-03] MEDS: NEOMY SULF/BACITRAC ZN/POLY 15 GM TUBE TP SCH (09:05)
[2022-04-03] MEDS: POLYETHYLENE GLYCOL 3350 17 GM POWD.PACK PO SCH (09:05)
[2022-04-03] MEDS: INSULIN REGULAR, HUMAN 100 UNIT/ML 3 ML VIAL SQ PRN ×5 (09:09→21:53)
[2022-04-03 12:00] VITALS: BP 149/83
[2022-04-03] MEDS: ENOXAPARIN SODIUM 40 MG/0.4 ML DISP.SYRIN SQ SCH (12:26)
--- NOTE | 2022-04-03 12:42 | NUR ---
MS RN NOTE PATIENT REFUSED 1200 DOSE OF SLIDING SCALE INSULIN, STATED THAT TAKING SLIDING SCALE INSULIN WITHOUT NPH MAKES HIM FEEL BAD. PATIENT A/O X 3, RISKS OF REFUSING MEDICATION EXPLAINED. PATIENT AGAIN REFUSED SLIDING SCALE INSULIN. PATIENT REFUSAL NOTED.
[2022-04-03] MEDS: INSULIN NPH/REG 70/30 MIX INJ 100 UNIT/ML VIAL SQ SCH (17:35)
--- NOTE | 2022-04-03 19:00 | NUR ---
MS RN CLOSING NOTES PATIENT LAYING IN BED, A/O OX 4, ABLE TO MAKE NEEDS KNOWN, TOLERATING WELL ON 2 LPM O2 VIA CANNULA WITH NO S/S RESPIRATORY DISTRESS. LAC # 18 SL CLEAN, INTACT, AND INFUSING NS @ 75 ML/HR. R WRIST # 18 SL CLEAN, INTACT, AND FLUSHING WELL. SAFETY MEASURES IN PLACE: BED IN LOWEST LOCKED POSITION, SIDE RAILS UP X 2, CALL LIGHT WITHIN REACH. ALL NEEDS MET. WILL ENDORSE TO [place] FOR NORBERT.
[2022-04-03 20:00] VITALS: BP 134/84
--- NOTE | 2022-04-03 20:00 | NUR ---
MS RN OPENING NOTE RECEIVED PATIENT IN BED, A/O OX 4, ABLE TO MAKE NEEDS KNOWN, TOLERATING WELL ON 2 LPM O2 VIA CANNULA WITH NO S/S RESPIRATORY DISTRESS. RIGHT WRIST g#18 AND LAC # 18 INTACT AND PATENT IVF NS @ 75 ML/HR. SAFETY MEASURES IN PLACE: ALL DUE MEDS GIVEN ORDERED NO ASE NOTED .ALL NEEDS ATTENDED TOO .BED IN LOWEST LOCKED POSITION, SIDE RAILS UP X 2, CALL LIGHT WITHIN REACH. WILL CONTINUE TO MONITOR.
[2022-04-03] MEDS: INSULIN GLARGINE, 100 UNIT/ML CARTRIDGE SQ SCH (21:56)
--- NOTE | 2022-04-03 22:06 | NUR ---
RN MS NOTES Blood sugar @ 2200: 284mg/dl. 6units per sliding scale insulin given as ordered. 18units lantus given as ordered.
[2022-04-04] MEDS: CEFEPIME 2 GM in IV D5W 100 ML IV SCH ×3 (03:54→20:48)
[2022-04-04 04:00] VITALS: BP 137/85
--- NOTE | 2022-04-04 06:35 | NUR ---
MS RN CLOSING NOTES PT. ALERT AND ORIENTED X4, CURRENTLY SLEEPING COMFORTABLY IN BED, EASILY AWAKEN BY TACTILE AND VERBAL STIMULI. NO FACIAL GRIMACING, NO EVIDENCE OF PAIN/DISCOMFORT AT THIS TIME. ON 2LPM VIA NC, WELL HAMIDA, NO SOB, NO DISTRESS NOTED. VS STABLE. LAC IV ACCESS DRY, PATENT, AND INTACT. ALL NEEDS ATTENDED. ALL DUE MEDS GIVEN. SAFETY PRECAUTION IMPLEMENTED: BED LOCKED AND IN LOWEST POSITION. WILL ENDORSE TO NEXT SHIFT.
[2022-04-04] MEDS: IV NS 0.9% 1,000 ML IV PRN (07:26)
--- NOTE | 2022-04-04 07:30 | NUR ---
MS RN AM NOTES PATIENT IN BED, A/O OX 4, ABLE TO MAKE NEEDS KNOWN, TOLERATING WELL ON 2 LPM O2 VIA CANNULA O2 SAT 95%.WITH NO S/S RESPIRATORY DISTRESS. RESPIRATION UNLABORED. DENIES PAIN. LAC # 18 SL WITH NS @ 75 ML/HR INFUSING WELL. SITE CLEAR. R WRIST # 18 SL CLEAN, INTACT, AND FLUSHING WELL. POC DISCUSSED. VERBALIZED UNDERSTANDING. SAFETY MEASURES IN PLACE: BED IN LOWEST LOCKED POSITION, SIDE RAILS UP X 2, CALL LIGHT WITHIN REACH. WILL CONTINUE TO MONITOR.
[2022-04-04 08:00] VITALS: BP 137/81
[2022-04-04] MEDS: BLOOD SUGAR DIAGNOSTIC 1 EACH STRIP IN SCH ×4 (08:00→22:32)
[2022-04-04] MEDS: INSULIN REGULAR, HUMAN 100 UNIT/ML 3 ML VIAL SQ PRN ×4 (08:23→22:31)
[2022-04-04] MEDS: PANTOPRAZOLE 40 MG TABLET.DR PO SCH (08:27)
[2022-04-04] MEDS: DOCUSATE SODIUM 100 MG CAPSULE PO SCH ×2 (08:27→17:00)
[2022-04-04] MEDS: POLYETHYLENE GLYCOL 3350 17 GM POWD.PACK PO SCH (08:27)
[2022-04-04] MEDS: INSULIN NPH/REG 70/30 MIX INJ 100 UNIT/ML VIAL SQ SCH ×2 (08:29→18:21)
[2022-04-04] MEDS: NEOMY SULF/BACITRAC ZN/POLY 15 GM TUBE TP SCH (08:35)
--- NOTE | 2022-04-04 09:30 | NUR ---
RN NOTES DUE MEDS GIVEN
[2022-04-04] MEDS: ENOXAPARIN SODIUM 40 MG/0.4 ML DISP.SYRIN SQ SCH (12:14)
[2022-04-04 16:00] VITALS: BP 126/74
--- NOTE | 2022-04-04 18:55 | NUR ---
RN NOTES ALL NEEDS MET. RESTING COMFORTABLY. NOT IN DISTRESS AMBULATE WITH ASSIST. DC IVF PER DR. BROCK WILL ENDORSE TO NEXT SHIFT FOR NORBERT
[2022-04-04 20:00] VITALS: BP 134/78
--- NOTE | 2022-04-04 20:00 | NUR ---
MS RN OPENING NOTE RECEIVED PATIENT IN BED, A/O OX 4, ABLE TO MAKE NEEDS KNOWN, TOLERATING WELL ON 2 LPM O2 VIA CANNULA WITH NO S/S RESPIRATORY DISTRESS. RIGHT WRIST g#18 AND LAC # 18 INTACT AND PATENT ,V/S STABLE AFEBRILE . SAFETY MEASURES IN PLACE: ALL DUE MEDS GIVEN ORDERED NO ASE NOTED .ALL NEEDS ATTENDED TOO .BED IN LOWEST LOCKED POSITION, SIDE RAILS UP X 2, CALL LIGHT WITHIN REACH. WILL CONTINUE TO MONITOR.
[2022-04-04] MEDS: INSULIN GLARGINE, 100 UNIT/ML CARTRIDGE SQ SCH (22:32)
--- NOTE | 2022-04-04 22:34 | NUR ---
ms rn notes Blood sugar for 10 pm is 216mg/dl 4 units of regular insulin given per sliding scale and 18 uniots of lantus given as order.
[2022-04-05] MEDS: CEFEPIME 2 GM in IV D5W 100 ML IV SCH ×3 (03:58→20:19)
[2022-04-05 04:00] VITALS: BP 137/82
[2022-04-05 06:13] LABS: CALCIUM, SERUM 7.8 mg/dL (8.5-10.1); CREATININE 0.7 mg/dL (0.6-1.3); POTASSIUM 3.4 mmol/L (3.5-5.1)
--- NOTE | 2022-04-05 07:20 | NUR ---
AM MED SURG OPENING NOTES: RECEIVED PATIENT IN BED, AWAKE, ALERT, ORIENTED X 4. NO RESPIRATORY DISTRESS NOTED AT THIS TIME, BREATHING EVEN AND UNLABORED. ON OXYGEN @ 2L/MIN VIA N/C WITH OXYGEN SATURATION OF 93%. PATIENT HAS SALINE LOCK ON RIGHT WRIST # 18 INTACT,. PATENT AND NO S/S INFILTRATION, ALSO HAS IV ACCESS ON LEFT ANTECUBITAL RUNNING WITH NS TKO, SITE PATENT, WITH NO INFILTRATION NOTED. PATIENT USES URINAL WITH YELLOW COLORED URINE, NO HEMATURIA AND NO SEDIMENTATION NOTED. BED LOCKED AND IN LOWEST POSITION WITH BED ALARM ON. ALL SAFETY MEASURES IN PLACE. CALL LIGHT WITHIN REACH. WILL CONTINUE TO MONITOR PATIENT THROUGHOUT SHIFT.
[2022-04-05] MEDS: ACETAMINOPHEN 325 MG TABLET PO PRN (08:23)
[2022-04-05] MEDS: PANTOPRAZOLE 40 MG TABLET.DR PO SCH (08:23)
[2022-04-05] MEDS: DOCUSATE SODIUM 100 MG CAPSULE PO SCH ×2 (08:23→17:06)
[2022-04-05] MEDS: POLYETHYLENE GLYCOL 3350 17 GM POWD.PACK PO SCH (08:23)
[2022-04-05] MEDS: INSULIN REGULAR, HUMAN 100 UNIT/ML 3 ML VIAL SQ PRN ×4 (08:25→21:50)
[2022-04-05] MEDS: INSULIN NPH/REG 70/30 MIX INJ 100 UNIT/ML VIAL SQ SCH ×2 (08:27→17:00)
[2022-04-05] MEDS: BLOOD SUGAR DIAGNOSTIC 1 EACH STRIP IN SCH ×4 (08:28→21:45)
[2022-04-05] MEDS: NEOMY SULF/BACITRAC ZN/POLY 15 GM TUBE TP SCH (08:28)
--- NOTE | 2022-04-05 10:30 | NUR ---
DR BROCK CAME BY TO DO HIS ROUNDS AND EXPLAINED POSSIBLE DISCHARGE FOR TOMORROW. PATIENT REFUSED TO BE DISCHARGED TO A FACILITY AND REQUESTED TO BE DISCHARGED HOME WITH VISITING HOME HEALTH NURSE DESPITE THE EXPLANATION ON HIS BEST INTEREST BUT PATIENT STATED THAT HE HAS SOME FAMILY MEMBERS TO VISIT HIM WELL.
[2022-04-05] MEDS ORDERED: POTASSIUM CHLORIDE 20 MEQ TAB.PRT.SR PO ONE (11:00)
[2022-04-05] MEDS: ENOXAPARIN SODIUM 40 MG/0.4 ML DISP.SYRIN SQ SCH (11:22)
[2022-04-05 12:00] VITALS: BP 134/77
--- NOTE | 2022-04-05 18:38 | NUR ---
PM MED SURG CLOSING NOTES: PATIENT IN BED, AWAKE, ALERT, ORIENTED X 4. NO RESPIRATORY DISTRESS NOTED THE ENTIRE SHIFT. NO SYMPTOMS OF HYPERGLYCEMIA NOTED THROUGHOUT, BLOOD GLUCOSE CHECKED ORDERED AND ADMINISTERED INSULIN PER PROTOCOL. ON OXYGEN @ 2L/MIN VIA N/C WITH OXYGEN SATURATION OF 95%. IV ACCESSES ON RIGHT WRIST AND LEFT ANTECUBITAL REMAIN INTACT,. PATENT AND NO S/S INFILTRATION. PATIENT USED URINAL AND VOIDED 1050 ML OF YELLOW COLORED URINE, NO HEMATURIA AND NO SEDIMENTATION NOTED. ALL SAFETY MEASURES IMPLEMENTED THROUGHOUT SHIFT. BED LOCKED AND IN LOWEST POSITION WITH BED ALARM ON. ALL NEEDS NET AND ANTICIPATED. CALL LIGHT WITHIN REACH. WILL ENDORSE TO INCOMING NURSE FOR CONTINUITY OF CARE.
--- NOTE | 2022-04-05 20:04 | NUR ---
MS RN OPENING NOTE PATIENT AWAKE IN BED, ALERT/ORIENTED X 4, PT ABLE TO MAKE NEEDS KNOWN. PT STABLE ON 2 LPM OF 02 VIA NASAL CANNULA, NO S/S OF DISTRESS OR SOB NOTED, BREATHING EVEN AND UNLABORED. IV ACCESS ON RIGHT WRIST #18G AND LEFT AC #18G INTACT AND SALINE LOCKED. SAFETY MEASURES IN PLACE: CALL LIGHT WITHIN REACH, SIDE RAILS UP X 2, BED LOCKED IN LOWEST POSITION, HOB ELEVATED, BED ALARM ON. WILL CONTINUE TO MONITOR PATIENT
[2022-04-05 20:55] VITALS: BP 151/91
[2022-04-05] MEDS ORDERED: INSULIN GLARGINE, 100 UNIT/ML CARTRIDGE SQ SCH (22:00)
[2022-04-06] MEDS: CEFEPIME 2 GM in IV D5W 100 ML IV SCH (04:19)
[2022-04-06 04:44] VITALS: BP 148/92
--- NOTE | 2022-04-06 06:48 | NUR ---
MS RN CLOSING NOTE PATIENT SLEEPING IN BED, ALERT/ORIENTED X 4, PT ABLE TO MAKE NEEDS KNOWN. PT STABLE ON 2 LPM OF 02 VIA NASAL CANNULA, NO S/S OF DISTRESS OR SOB NOTED, BREATHING EVEN AND UNLABORED. IV ACCESS ON RIGHT WRIST #18G AND LEFT AC #18G INTACT AND SALINE LOCKED. NO SIGNIFICANT CHANGES THIS SHIFT, MEDICATIONS GIVEN ORDERED, PT NEEDS MET THROUGHOUT THIS SHIFT. SAFETY MEASURES IN PLACE: CALL LIGHT WITHIN REACH, SIDE RAILS UP X 2, BED LOCKED IN LOWEST POSITION, HOB ELEVATED, BED ALARM ON. WILL ENDORSE TO DAYSHIFT RN FOR CONTINUITY OF CARE
--- NOTE | 2022-04-06 07:15 | NUR ---
AM MED SURG OPENING NOTES: RECEIVED PATIENT IN BED, AWAKE, ALERT, ORIENTED X 4. NO SOB NOTED AT THIS TIME, BREATHING EVEN AND UNLABORED. ON OXYGEN @ 2L/MIN VIA N/C WITH OXYGEN SATURATION OF 97%. PATIENT HAS SALINE LOCK ON RIGHT WRIST # 18 AND LEFT ANTECUBITAL, BOTH INTACT, PATENT AND NO S/S INFILTRATION NOTED. NO C/O PAIN OR DISCOMFORT NOTED. PATIENT USES URINAL WITH YELLOW COLORED URINE, NO HEMATURIA AND NO SEDIMENTATION NOTED. BED LOCKED AND IN LOWEST POSITION WITH BED ALARM ON. ALL SAFETY MEASURES IN PLACE. CALL LIGHT WITHIN REACH. WILL CONTINUE TO MONITOR PATIENT THROUGHOUT SHIFT.
[2022-04-06] MEDS: BLOOD SUGAR DIAGNOSTIC 1 EACH STRIP IN SCH ×2 (08:36→11:56)
[2022-04-06] MEDS: PANTOPRAZOLE 40 MG TABLET.DR PO SCH (08:39)
[2022-04-06] MEDS: POLYETHYLENE GLYCOL 3350 17 GM POWD.PACK PO SCH (08:39)
[2022-04-06] MEDS: DOCUSATE SODIUM 100 MG CAPSULE PO SCH (08:39)
[2022-04-06] MEDS: INSULIN REGULAR, HUMAN 100 UNIT/ML 3 ML VIAL SQ PRN ×2 (08:42→12:04)
[2022-04-06] MEDS: INSULIN NPH/REG 70/30 MIX INJ 100 UNIT/ML VIAL SQ SCH (08:42)
[2022-04-06] MEDS: NEOMY SULF/BACITRAC ZN/POLY 15 GM TUBE TP SCH (08:43)
[2022-04-06] MEDS: ACETAMINOPHEN 325 MG TABLET PO PRN (08:56)
--- NOTE | 2022-04-06 10:25 | NUR ---
PATIENT AMBULATED WITH PHYSICAL THERAPIST, NO APPARENT DISTRESS NOTED.
--- NOTE | 2022-04-06 10:30 | NUR ---
SPOKE WITH NURSE LEW RN AND GAVE REPORT FOR PATIENT TO BE TRANSFERRED TO MED SURG UNIT.
--- NOTE | 2022-04-06 11:00 | NUR ---
PATIENT LEFT VIA GURNEY TO BE TRANSFERRED TO MED SURG UNIT ACCOMPANIED BY NURSE LEW. PATIENT LEFT IN NO ACUTE DISTRESS
[2022-04-06 11:25] VITALS: BP 125/82
--- NOTE | 2022-04-06 11:27 | NUR ---
RN NOTES PATIENT TRANSFERRED TO MEDSURG UNIT FROM [place] AT 11O5 VIA HIS BED. PATIENT IS ALERT AND ORIENTED X 4, CROATIAN SPEAKING. PATIENT ORIENTED TO UNIT AND STAFF. VITAL SIGNS STABLE. ON ROOM AIR, BREATHING EVENLY WITH NO ACUTE RESPIRATORY DISTRESS NOTED. PATIENT WITH IV ACCESS ON LAC G#18 AND RIGHT WRIST G#20, INTACT, PATENT AND FLUSHES WELL. SKIN IS INTACT. PATIENT PLACED IN SAFETY MEASURES; BED IN LOW POSITION, LOCKED, SIDE RAILS UP X 2, CALL LIGHT AND TRAY TABLE WITHIN EASY REACH OF PATIENT. WILL CONTINUE TO MONITOR THROUGHOUT SHIFT.
[2022-04-06] MEDS: ENOXAPARIN SODIUM 40 MG/0.4 ML DISP.SYRIN SQ SCH (13:00)
[2022-04-06] MEDS ORDERED: INSU100C10 SQ (14:17)
[2022-04-06] MEDS ORDERED: INSU100V7 SQ (14:17)
--- NOTE | 2022-04-06 16:46 | NUR ---
RN DISCHARGED NOTES PT DISCHARGED HOME WITH HOME HEALTH IN STABLE CONDITION. A/O X4. [place]ER SPEAKING AND UNDERSTANDS SOME EGYPTIAN. ALL BELONGINGS ACCOUNTED FOR AND PT'S SIGNED BELONGINGS LIST. IV ACCESSES ON LAC G#18 AND RIGHT WRIST G#20 BOTH REMOVED WITH NO ACTIVE BLEEDING NOTED, DRY PRESSURE DRESSINGS APPLIED AT SITES. HEALTH TEACHINGS/DISCHARGE INSTRUCTIONS GIVEN TO PT AND HIS BROTHER-IN LAW ESPECIALLY HOW TO ADMINISTER INSULIN VIA PEN, BOTH VERBALIZED UNDERSTANDING, PT ALSO VERBALIZED THAT HE KNEW HOW TO DO IT. EXIT FOLDER HANDED TO BROTHER IN LAW. NAME ARMBAND REMOVED. PT LEFT UNIT @ 1620 VIA WHEELCHAIR ACCOMPANIED BY NEIDA OSUNA. AND CHARGE NURSE AWARE OF DISCHARGE.
== END 2022-04-06 16:25 | disposition home health service (06) | DRG 420 ==
LOC: ER 06:18 → ICU 13:23 → MEDSG1 03-31 10:50 → MED 04-06 10:02
PROVIDERS: ATTEND Nurse Practitioner Acute Care
DX: E11.00 Type 2 diabetes mellitus with hyperosmolarity without nonketotic hyperglycemic-hyperosmolar coma (NKHHC) (principal); N17.0 Acute kidney failure with tubular necrosis; G93.41 Metabolic encephalopathy; J15.9 Unspecified bacterial pneumonia; E83.51 Hypocalcemia; M10.9 Gout, unspecified; E11.01 Type 2 diabetes mellitus with hyperosmolarity with coma; E11.65 Type 2 diabetes mellitus with hyperglycemia; F32.A Depression, unspecified; I10 Essential (primary) hypertension; Z79.4 Long term (current) use of insulin; Z91.14 Patient's other noncompliance with medication regimen
CPT/HCPCS: 36415; 70450-TC; 80048-TC; 80076-TC; 81001; 82962-TC; 83605-TC; 83735-TC; 84100-TC; 85025-TC; 87040-TC; 87081-TC; 97110-TC; 97112-TC; 97530-TC; C9113; G0378; G0480; J0692; J1650; J1815; J3480; J7030; J7060